=== PATIENT | male | born 1975 | race Caucasian/White ===

== ENCOUNTER 2023-05-03 13:01 | Outpatient (CLI) | payer OTHER, SELFPAY ==
--- NOTE | 2023-05-03 13:00 | CRLHL7_ITS ---
For Patients: As a result of the Century Cures Act, medical imaging exams and procedure reports are released immediately into your electronic medical record. You may view this report before your referring provider. If you have questions, please contact your health care provider. HISTORY: Right wrist carpal boss. TECHNIQUE: Noncontrast MRI of the right wrist. COMPARISON: No prior. FINDINGS: Tendons: The flexor tendons are intact. The extensor tendons are intact. Specifically, the extensor carpi radialis longus and brevis tendons are intact. - Intrinsic wrist ligaments: The scapholunate ligament is intact. No widening of the interval. Lunotriquetral ligament is intact. No widening of the interval. - Triangular fibrocartilage complex: The TFC is intact. Its radial and ulnar attachments are maintained. The volar and dorsal distal radioulnar ligaments are intact. ECU tendon intact. No tendon subluxation to suggest subsheath injury. No disruption of the ulnar collateral ligament of the wrist. - Joint spaces: The DRUJ is maintained. Radiocarpal and midcarpal articulations are maintained. There is bony hypertrophic change along the dorsal aspect of the 2nd CMC articulation as noted on sagittal PD fat-sat image #8 of series 14. 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 This accounts for the patient`s carpal boss. There is not a separate ossicle. CMC articulations otherwise maintained. - Osseous structures: No fracture or avascular necrosis. - Soft tissues: The median and ulnar nerves are intact. No soft tissue mass. IMPRESSION: 1. 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 Small focus of bone marrow edema involves the dorsal base of the 2nd metacarpal bone. No separate appearing ossicle. 2. Extensor carpi radialis longus and brevis tendons are intact. Dictated by Estuardo Khan MD @ 05/04/2023 8:36:29 AM (Electronically Signed)
--- NOTE | 2023-05-03 14:00 | CRLHL7_ITS ---
For Patients: As a result of the Century Cures Act, medical imaging exams and procedure reports are released immediately into your electronic medical record. You may view this report before your referring provider. If you have questions, please contact your health care provider. HISTORY: Carpal boss. TECHNIQUE: Noncontrast CT of the right wrist. COMPARISON: MRI 05/03/2023. FINDINGS: There is osseous hypertrophic change involving the dorsal aspect of the 2nd CMC articulation as noted on sagittal image #24 series 8. 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 This represents the patient`s carpal boss. There is no separate ossicle. No acute fracture. Mild ulnar minus variance. Vacuum joint phenomenon noted in the radiolunate articulation. 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 No separate ossicle. Please note that all CT scans at this facility use dose modulation, iterative reconstruction, and/or weight-based dosing when appropriate to reduce radiation dose to as low as reasonably achievable. Dictated by Estuardo Khan MD @ 05/04/2023 9:01:19 AM (Electronically Signed)
== END 2023-05-03 13:02 | disposition home or self-care (01) ==
LOC: MRI 13:05
PROVIDERS: PCP Family Medicine; Visit Provider Orthopaedic Surgery
DX: M25.731 Osteophyte, right wrist (principal)
CPT/HCPCS: 73200; 73221